=== PATIENT | female | born 1995 | race Caucasian/White ===

== ENCOUNTER 2024-04-25 18:28 | Emergency (ER) | payer MEDICAID, OTHER ==
[~2024-04-25] VITALS: Ht 162.6 cm; Wt 76.6 kg
[2024-04-25 18:41] VITALS: TEMP 98.1
[2024-04-25 20:49] VITALS: BP 145/94; PULSE 98; RESP 18; O2SAT 98
== END 2024-04-25 20:55 | disposition home or self-care (01) ==
LOC: ER 18:29
DX: S80.11XA Contusion of right lower leg, initial encounter (principal); W18.39XA Other fall on same level, initial encounter; Y93.89 Activity, other specified; Y92.89 Other specified places as the place of occurrence of the external cause; Y99.8 Other external cause status
CPT/HCPCS: 73590; 99283